=== PATIENT | female | born 2000 | race Caucasian/White ===

== ENCOUNTER 2021-03-14 07:25 | Emergency (ER) | payer BC ==
[~2021-03-14] VITALS: Ht 170.2 cm; Wt 54.5 kg
[~2021-03-14 07:25] MED LIST: NO HOME MEDICATIONS
[2021-03-14 08:06] LABS: BASO # 0.1 K/mm3 (0.0-0.2); BASO % 1.1 % (0.0-2.0); EOS # 0.1 K/mm3 (0.0-0.7); EOS % 1.5 % (0-4.0); GRAN # 4.8 K/mm3 (1.4-6.5); GRAN % 50.9 % (42.2-75.2); HEMATOCRIT 43.4 % (37.0-47.0); HEMOGLOBIN 14.7 g/dl (12.5-16.0); LYMPH # 3.4 K/mm3 (1.2-3.4); LYMPH % 36.2 % (20.0-51.0); MEAN CELL VOLUME 90 fl (80.0-100.0); MEAN CORPUSCULAR HEMOGLOBIN 30 pg (27.0-31.0); MEAN CORPUSCULAR HGB CONC 34 g/dl (33.0-37.0); MEAN PLATELET VOLUME 10.6 fl (7.4-10.4); MONO # 0.9 K/mm3 (0.1-0.6); MONO % 9.9 % (1.7-9.3); PLATELET COUNT 288 K/mm3 (130-400); RED BLOOD COUNT 4.85 M/mm3 (4.10-5.30); REDCELL DISTRIBUTION WIDTH-CV 10.9 % (11.5-14.5)
[2021-03-14 08:32] LABS: BILIRUBIN,TOTAL 0.6 mg/dL (0.2-1.2); CALCIUM 9.9 mg/dL (8.4-10.2); CREATININE, serum 0.9 mg/dL (0.57-1.11); TOTAL PROTEIN 7.3 gm/dL (6.2-8.1)
[2021-03-14 08:34] LABS: POTASSIUM 2.8 mmol/L (3.5-4.5)
[2021-03-14 08:51] LABS: PROLACTIN 93.9 ng/mL (5.18-26.53)
[2021-03-14 09:01] VITALS: BP 115/65; PULSE 84
== END 2021-03-14 09:00 | disposition home or self-care (01) ==
LOC: COL.ER 07:25
PROVIDERS: Family Medicine
DX: R55 Syncope and collapse (principal)
CPT/HCPCS: J7040

== ENCOUNTER 2023-07-05 07:36 | Emergency (ER) | payer BC ==
[~2023-07-05] VITALS: Ht 162.6 cm; Wt 70.5 kg
[~2023-07-05 07:36] MED LIST changes: +IBU600 MG PO; +PRENATAL TABLET PO
[2023-07-05 07:39] VITALS: TEMP 97.4
[2023-07-05 09:31] VITALS: BP 111/73; PULSE 90
== END 2023-07-05 09:00 | disposition home or self-care (01) ==
LOC: COL.ER 07:36
DX: R19.7 Diarrhea, unspecified (principal)